=== PATIENT | female | born 1990 ===

== ENCOUNTER 2017-02-25 08:35 | Emergency (ER) | payer SELFPAY ==
[2017-02-25 08:40] VITALS: TEMP 97.3; O2SAT 98
--- NOTE | 2017-02-25 09:36 | C.PDOC ---
History Of Present Illness 26 y/o female presents to ED with complaints of left ear pain for 2 days. Patient is currently using bilateral hearing aids, current set has be used for 2 months. Patient denies fever, ear discharge or any other complaints at this time. L EAR PAIN X 2 DAYS. NO PAIN, DC, FEVER. USING B/L HEARING AIDS, CURRENT SET X 2 MONTHS. NO OTHER ASSOC SX EXAM NAD HEENT B/L EARS WNL; TM INTACT NO ERYTHEMA NO CANAL SWELL NONTEND REMAINDER NEG MDM ADVISED NEED FOR ENT CLINIC FU. OTC PAIN MEDS NEEDED Time Seen by Provider: 02/25/17 09:25 Chief Complaint (Nursing): ENT Problem History Per: Patient History/Exam Limitations: None Onset/Duration Of Symptoms: Days Current Symptoms Are (Timing): Still Present Quality (Ear): denies: Discharge Past Medical History Reviewed: Historical Data, Nursing Documentation, Vital Signs Vital Signs: Last Vital Signs Temp 97.3 F L 02/25/17 08:39 Pulse 89 02/25/17 09:45 Resp 18 02/25/17 09:45 BP 124/69 02/25/17 09:45 Pulse Ox 98 02/25/17 09:45 - Medical History PMH: No Chronic Diseases Surgical History: No Surg Hx Family History: States: No Known Family Hx - Social History Hx Alcohol Use: No Hx Substance Use: No - Immunization History Hx Tetanus Toxoid Vaccination: No Hx Influenza Vaccination: No Hx Pneumococcal Vaccination: No Review Of Systems Constitutional: Negative for: Fever, Chills ENT: Positive for: Ear Pain. Negative for: Ear Discharge Respiratory: Negative for: Cough, Shortness of Breath Skin: Negative for: Rash Physical Exam - Physical Exam Appears: Non-toxic, No Acute Distress Skin: Warm, Dry, No Rash Head: Normacephalic Eye(s): bilateral: Normal Inspection, EOMI Ear(s): Bilateral: Normal Nose: Normal Oral Mucosa: Moist Throat: Normal, No Erythema, No Exudate Neck: Normal ROM, Supple Chest: Symmetrical Cardiovascular: Rhythm Regular Respiratory: Normal Breath Sounds, No Rales, No Rhonchi, No Wheezing Neurological/Psych: Oriented x3 ED Course And Treatment O2 Sat by Pulse Oximetry: 98 (RA) Pulse Ox Interpretation: Normal Medical Decision Making Medical Decision Making: Patient advised the need for ENT clinic follow up Instructed to take OTC medication as needed Disposition Counseled Patient/Family Regarding: Diagnosis, Need For Followup - Disposition Referrals: Chelle Turcios [facility] [Outside] [facility] [Outside] Disposition: HOME/ ROUTINE Disposition Time: 09:36 Condition: GOOD Additional Instructions: TOME MOTRIN Y / O TYLENOL TAMBIN ANNA MARIE SE NECESITE PARA DOLOR. SEGUIMIENTO CON UN ESPECIALISTA PARA VIDHYA EVALUACIN ADICIONAL. Instructions: Earache (ED) Forms: [employer] (Tongan) Print Language: KAZAKH - Clinical Impression Clinical Impression: Otalgia - Scribe Statement The provider has reviewed the documentation as recorded by the Amyibhilary Padgett All medical record entries made by the Eric were at my direction and personally dictated by me. I have reviewed the chart and agree that the record accurately reflects my personal performance of the history, physical exam, medical decision making, and the department course for this patient. I have also personally directed, reviewed, and agree with the discharge instructions and disposition.
[2017-02-25 09:45] VITALS: BP 124/69; PULSE 89; RESP 18
== END 2017-02-25 09:46 | disposition home or self-care (01) ==
LOC: C.ER 08:35
DX: H92.02 Otalgia, left ear (principal)